=== PATIENT | male | born 1935 | race Caucasian/White ===

== ENCOUNTER 2022-12-31 15:43 | Emergency (ER) | payer OTHER ==
[~2022-12-31] VITALS: Ht 170.2 cm; Wt 78.5 kg
[2022-12-31 15:52] VITALS: BP_SYST 173
[2022-12-31] MEDS ORDERED: NACL 0.9% 1,000 ML IV ONE ×2 (16:15→19:30)
[2022-12-31] MEDS ORDERED: ONDANSETRON HCL 4 MG/2 ML VIAL IVP ONE (17:15)
[2022-12-31 17:30] LABS: BASOPHILS % (AUTO) 0.1 % (0.0-2.0); HEMATOCRIT 41.6 % (36-54); LYMPHOCYTES # (AUTO) 0.3 K/uL (1.0-5.5); LYMPHOCYTES % (AUTO) 3.5 % (20.5-51.5); MEAN CORPUSCULAR HEMOGLOBIN 32 pg (27-31); MEAN CORPUSCULAR HGB CONC 34 % (32-36); MEAN CORPUSCULAR VOLUME 94 fL (79.0-98.0); MONOCYTES # (AUTO) 0.5 K/uL (0.0-1.0); MONOCYTES % (AUTO) 6.4 % (1.7-9.3); NEUTROPHILS # (AUTO) 6.7 K/uL (1.8-7.7); PLATELET COUNT (AUTO) 179 K/uL (130-430); RED BLOOD CELL COUNT(AUTO) 4.41 MIL/uL (4.2-6.2); RED CELL DISTRIBUTION WIDTH 14.9 % (9.0-15.0); WHITE BLOOD COUNT (AUTO) 7.4 K/uL (4.8-10.8)
[2022-12-31 17:42] LABS: ANION GAP 11 (5-15); CHLORIDE 100 mmol/L (98-107); CREATININE 1.02 mg/dL (0.55-1.30); GLUCOSE 136 mg/dL (70-99); UREA NITROGEN, BLOOD 17 mg/dL (8-21)
--- NOTE | 2022-12-31 17:45 | NUR ---
Patient arrived to ED [facility] for c/o abdominal pain. Patient said he came from home today because he was trying to eat crackers and chicken at home, but he "couldn't keep it down." Patient had nausea, vomiting, abdominal pain, and diarrhea. Saturday morning and couple times during night, today around 10 am in [place]." Patient went to [facility] and had diarrhea again. Patient said he has gas and feces in stool now. Dr. Valverde at bedside to [facility] patient. Patient vital signs stable. Respiration even and unlabored. No shortness of breath noted.
[2022-12-31 17:47] LABS: ALANINE AMINOTRANSFERASE 40 U/L (12-78); ALBUMIN 4.2 g/dL (3.4-4.8); ASPARTATE AMINOTRANSFERASE 34 U/L (10-37); LIPASE 79 U/L (73-393); TOTAL BILIRUBIN 0.4 mg/dL (0.0-1.0)
[2022-12-31 17:56] VITALS: BP_SYST 153
[2022-12-31] MEDS ORDERED: ONDA-8 TL (19:27)
[2022-12-31] MEDS ORDERED: IMO2 PO (19:27)
[2022-12-31] MEDS ORDERED: MAG HYDROX/AL HYDROX/SIMETH 30 ML, LIDOCAINE VISCOUS 2% 15ML (PO) 15 ML, DICYCLOMINE HC... PO ONE ×3 (19:30)
[2022-12-31 19:34] LABS: BILIRUBIN,URINE NEGATIVE (NEGATIVE); CLARITY/URINE CLEAR (CLEAR); COLOR,URINE YELLOW (YELLOW); GLUCOSE,URINE NEGATIVE (NEGATIVE); KETONES,URINE TRACE (NEGATIVE); LEUKOCYTE ESTERASE ,URINE NEGATIVE (NEGATIVE); NITRITE, URINE NEGATIVE (NEGATIVE); PH,URINE 5.5 (5.0-8.0); PROTEIN URINE TRACE (NEGATIVE); UROBILINOGEN,URINE 0.2 (0.2-1.0)
[2022-12-31 19:45] LABS: BLOOD, URINE TRACE (NEGATIVE)
[2022-12-31 19:47] LABS: BACTERIA,URINE FEW /HPF (None Seen); HYALINE CASTS, URINE 0-10 /LPF (None Seen); MUCUS,URINE 1+ /LPF (None Seen); RBC,URINE NONE SEEN /HPF (0-3); WBC,URINE 0-3 /HPF (0-3)
== END 2022-12-31 20:05 | disposition home or self-care (01) ==
LOC: SED 15:43
DX: A08.4 Viral intestinal infection, unspecified (principal); R11.0 Nausea; R10.30 Lower abdominal pain, unspecified; I10 Essential (primary) hypertension; Z79.899 Other long term (current) drug therapy
CPT/HCPCS: 99285; 74176; 96374; 96361; 80053; 81000; 83690; 85025; 36415; 76376; 83605; J2405; J7030

== ENCOUNTER 2024-01-11 13:10 | Emergency (ER) | payer OTHER ==
[~2024-01-11] VITALS: Ht 170.2 cm; Wt 78.5 kg
[2024-01-11 13:10] VITALS: BP_SYST 149; PULSE 93; RESP 18; TEMP 99.1; O2SAT 95
[~2024-01-11 13:10] MED LIST: IMO2 PO; ONDA-8 TL
[2024-01-11 17:12] VITALS: BP_SYST 140; PULSE 79; RESP 20; TEMP 97.8; O2SAT 96
== END 2024-01-11 17:13 | disposition home or self-care (01) ==
LOC: SED 13:10
DX: S62.323A Displaced fracture of shaft of third metacarpal bone, left hand, initial encounter for closed fracture (principal); S62.317A Displaced fracture of base of fifth metacarpal bone, left hand, initial encounter for closed fracture; S80.212A Abrasion, left knee, initial encounter; S00.81XA Abrasion of other part of head, initial encounter; R27.0 Ataxia, unspecified; I10 Essential (primary) hypertension; Z79.899 Other long term (current) drug therapy; W01.0XXA Fall on same level from slipping, tripping and stumbling without subsequent striking against object, initial encounter; Y93.89 Activity, other specified; Y92.89 Other specified places as the place of occurrence of the external cause; Y99.8 Other external cause status
CPT/HCPCS: 70450-TC; 73560; 99284